=== PATIENT | female | born 1960 | race Two or more races ===

== ENCOUNTER 2019-09-16 15:51 | Emergency (ER) | payer MEDICAID ==
[~2019-09-16] VITALS: Ht 177.8 cm; Wt 76.1 kg
[2019-09-16 15:57] VITALS: BP 127/80
--- NOTE | 2019-09-16 16:01 | NUR ---
PT WALKED TO TRIAGE WITH NO ACUTE DISTRESS OR LIMPING.
--- NOTE | 2019-09-16 16:11 | NUR ---
PT LEFT WITHOUT BEING SEEN.
== END 2019-09-16 16:13 | disposition left against medical advice (07) ==
LOC: ED 16:10
DX: M25.561 Pain in right knee (principal); Z53.21 Procedure and treatment not carried out due to patient leaving prior to being seen by health care provider